=== PATIENT | female | born 1990 | race African-American/Black ===

== ENCOUNTER 2022-05-18 10:43 | Emergency (ER) | payer BC, SELFPAY ==
[2022-05-18 10:52] VITALS: BP 123/74; PULSE 79; RESP 16; TEMP 36.2; O2SAT 100
--- NOTE | 2022-05-18 10:54 | ED.NAVMDI ---
HPI - Nausea/Vomiting/Diarrhea General Chief complaint: Nausea/Vomiting/Diarrhea Stated complaint: ears/nausea/dizzy/diarrhea abdo Time Seen by Provider: 05/18/22 10:54 Source: patient and RN notes reviewed History of Present Illness HPI Narrative: She my a bed in feel taken the other patient is a 31 year old female who presents to urgent care with multiple complaints of nausea, diarrhea, ear pain, headache, dizziness. Patient states that it started with a low-grade fever on Wednesday and she has been taking Tylenol. States that the diarrhea has since resolved but she is complaining of nausea. Patient states she works as a [employer] and has had multiple encounters with ill people. Patient is also use aspirin for body aches. Denies any abdominal pain urinary symptoms. No other acute complaints. No acute distress noted. Patient aware of the plan of care. Some parts of this dictation were generated by voice recognition software and may contain typographical and/or grammatical inaccuracies. Related Data Home Medications Medication Instructions Recorded Confirmed famotidine 20 mg tablet mg 05/18/22 ferrous sulfate 324 mg (65 mg mg PO 05/18/22 iron) tablet,delayed release methimazole 5 mg tablet mg 05/18/22 pantoprazole 40 mg tablet,delayed mg PO 05/18/22 release Allergies Allergy/AdvReac Type Severity Reaction Status Date / Time No Known Allergies Allergy Verified 05/18/22 10:51 Review of Systems Review of Systems: CONSTITUTIONAL: Reports of fever EYES: Denies visual changes, redness, or discharge. ENT: Reports of sore throat and bilateral otalgia CARDIOVASCULAR: Denies chest pain, palpitations, or edema. RESPIRATORY: Denies cough or dyspnea. GASTROINTESTINAL: Reports nausea without vomiting or abdominal pain GENITOURINARY: Denies dysuria or hematuria. SKIN: Denies rash or itching. MUSCULOSKELETAL: Denies back pain, joint pain, or myalgia. NEUROLOGIC: Reports of intermittent dizziness and headache All other systems reviewed are negative, except as documented in HPI. PMFSH Comments At the time of my signature, I reviewed and agree with the nursing past medical, surgical, social, and family history. There is no relevant family history pertinent to the patient complaint. Exam Narrative: GENERAL: This is a well-nourished, well-developed patient, in no apparent distress. HEAD: normocephalic, atraumatic. EYES: PERRL. Sclera clear/white. Vision is grossly intact. EARS: External ears normal, auditory canals clear and without drainage, TMs normal without perforation. Hearing grossly intact. NOSE: External nose normal with no obvious nasal discharge, nares without redness, clear rhinorrhea. THROAT: Mucous membranes moist, posterior pharynx clear. Moderate postnasal drainage NECK: Neck supple, non-tender without lymphadenopathy CARDIOVASCULAR: Regular rate and rhythm without murmurs, gallops, or rubs. RESPIRATORY: Clear to auscultation. Breath sounds equal bilaterally. No wheezes, rales, or rhonchi. GASTROINTESTINAL: Abdomen soft, non-tender, nondistended. Bowel sounds are active. SKIN: warm, intact with no suspicious lesions or rash, good texture and turgor. NEURO: awake, alert, and oriented to person, place and time. There were no obvious focal neurologic abnormalities. EXTREMITIES: No clubbing, cyanosis, or edema. Course Course Level of Care: Express Care Visit Vital Signs Vital signs: Vital Signs Temperature 97.1 F L 05/18/22 10:52 Pulse Rate 79 05/18/22 10:52 Respiratory Rate 16 05/18/22 10:52 Blood Pressure 123/74 05/18/22 10:52 Pulse Oximetry 100 05/18/22 10:52 Oxygen Delivery Room Air 05/18/22 10:52 Temperature 97.1 F L 05/18/22 10:52 Pulse Rate 79 05/18/22 10:52 Respiratory Rate 16 05/18/22 10:52 Blood Pressure 123/74 05/18/22 10:52 Pulse Oximetry 100 05/18/22 10:52 Oxygen Delivery Room Air 05/18/22 10:52 Reviewed MDM - Nausea/Vomiting/Diarrhea M
== END 2022-05-18 11:44 | disposition home or self-care (01) ==
PROVIDERS: Emergency Provider Nurse Practitioner Family; PCP Physician Assistant
DX: B34.9 Viral infection, unspecified (principal)
CPT/HCPCS: 87081; 87880; 99213; G0463

== ENCOUNTER 2022-05-21 09:41 | Emergency (ER) | payer BC, SELFPAY ==
--- NOTE | 2022-05-21 09:44 | ED.URI ---
HPI - URI/Sore Throat General Chief Complaint: Upper Respiratory Infection Stated Complaint: headache ears Time Seen by Provider: 05/21/22 09:44 Source: patient and RN notes reviewed History of Present Illness HPI Narrative: Patient is a 31-year-old female who presents to urgent care with complaints of persistent headache and ear discomfort. Patient was seen last week and testing was all negative. Patient has been taking Claritin and using Tylenol. Denies any fevers, nausea or vomiting. Patient has not followed up with her primary doctor. No other acute complaints. No acute distress noted. Patient requesting 2 days off work. Patient aware of the plan of care. Some parts of this dictation were generated by voice recognition software and may contain typographical and/or grammatical inaccuracies. Related Data Home Medications Medication Instructions Recorded Confirmed famotidine 20 mg tablet mg 05/18/22 ferrous sulfate 324 mg (65 mg mg PO 05/18/22 iron) tablet,delayed release methimazole 5 mg tablet mg 05/18/22 pantoprazole 40 mg tablet,delayed mg PO 05/18/22 release Allergies Allergy/AdvReac Type Severity Reaction Status Date / Time No Known Allergies Allergy Verified 05/18/22 10:51 Review of Systems Review of Systems: CONSTITUTIONAL: Denies fever, chills, or sweats. EYES: Denies visual changes, redness, or discharge. ENT: Denies rhinorrhea, congestion, sore throat. Reports bilateral otalgia CARDIOVASCULAR: Denies chest pain, palpitations, or edema. RESPIRATORY: Denies cough or dyspnea. GASTROINTESTINAL: Denies abdominal pain, nausea, vomiting, or diarrhea. GENITOURINARY: Denies dysuria or hematuria. SKIN: Denies rash or itching. MUSCULOSKELETAL: Denies back pain, joint pain, or myalgia. NEUROLOGIC: Reports of headaches All other systems reviewed are negative, except as documented in HPI. PMFSH Comments At the time of my signature, I reviewed and agree with the nursing past medical, surgical, social, and family history. There is no relevant family history pertinent to the patient complaint. Exam Narrative: GENERAL: This is a well-nourished, well-developed patient, in no apparent distress. HEAD: normocephalic, atraumatic. EYES: PERRL. Sclera clear/white. Vision is grossly intact. EARS: External ears normal, mild edema/erythema with scant drainage to the left auditory canal was slightly retracted TM. Auditory canals clear and without drainage, right TM normal without perforation. Hearing grossly intact. NOSE: External nose normal with no obvious nasal discharge, nares without redness, no rhinorrhea. THROAT: Mucous membranes moist, posterior pharynx clear. Mild postnasal drainage NECK: Neck supple SKIN: warm, intact with no suspicious lesions or rash, good texture and turgor. NEURO: awake, alert, and oriented to person, place and time. There were no obvious focal neurologic abnormalities. EXTREMITIES: No clubbing, cyanosis, or edema. Course Course Level of Care: Express Care Visit Vital Signs Vital signs: Vital Signs Temperature 98.7 F 05/21/22 10:07 Pulse Rate 94 05/21/22 10:07 Respiratory Rate 16 05/21/22 10:07 Blood Pressure 121/78 05/21/22 10:07 Pulse Oximetry 98 05/21/22 10:07 Oxygen Delivery Room Air 05/21/22 10:07 Temperature 98.7 F 05/21/22 10:07 Pulse Rate 94 05/21/22 10:07 Respiratory Rate 16 05/21/22 10:07 Blood Pressure 121/78 05/21/22 10:07 Pulse Oximetry 98 05/21/22 10:07 Oxygen Delivery Room Air 05/21/22 10:07 Reviewed MDM - URI/Sore Throat MDM Narrative Medical decision making narrative: Advised patient continue Tylenol/ibuprofen/Excedrin migraine as needed for headaches. Increase water intake. Complete the prescription antibiotic for the left ear infection as well as the ear drops. Do not anything else in the ears such as Q-tips, peroxide, [id number] ear drops. Continue the daily antihistamine. If you have any further co
[2022-05-21 10:07] VITALS: BP 121/78; PULSE 94; RESP 16; TEMP 37.1; O2SAT 98
== END 2022-05-21 10:24 | disposition home or self-care (01) ==
PROVIDERS: Emergency Provider Nurse Practitioner Family; PCP Physician Assistant
DX: H66.92 Otitis media, unspecified, left ear (principal); H60.92 Unspecified otitis externa, left ear; K21.9 Gastro-esophageal reflux disease without esophagitis; E03.9 Hypothyroidism, unspecified
CPT/HCPCS: 99213; G0463